=== PATIENT | male | born 1985 | race Caucasian/White ===

== ENCOUNTER 2016-11-04 15:59 | Emergency (ER) | payer OTHER ==
[~2016-11-04] VITALS: Ht 175.3 cm; Wt 90.7 kg
[2016-11-04] MEDS ORDERED: diphenhydrAMINE 50 MG/1 ML VIAL IM ONE (16:15)
--- NOTE | 2016-11-04 16:20 | NUR ---
Pt was given augmentin as A/B for dental, c/o developing rash all over body, trunk and all extremities. LS = and clear. Pt denies dizziness, CP, SOB, no other complaints, no distress noted.
[2016-11-04] MEDS ORDERED: diphenhydrAMINE 50 MG/1 ML VIAL ONE (16:29)
--- NOTE | 2016-11-04 16:37 | NUR ---
Gave pt d/c instructions, verbalized understanding.
== END 2016-11-04 16:49 | disposition home or self-care (01) ==
LOC: ER 15:59
DX: L50.9 Urticaria, unspecified (principal); F17.200 Nicotine dependence, unspecified, uncomplicated; Z88.0 Allergy status to penicillin; Z98.84 Bariatric surgery status
CPT/HCPCS: A4663; J1200